=== PATIENT | male | born 1985 | race Two or more races ===

== ENCOUNTER 2021-04-20 01:30 | Emergency (ER) | payer MEDICAID ==
[~2021-04-20] VITALS: Ht 175.3 cm; Wt 200.0 kg
[2021-04-20] MEDS ORDERED: OLANZapine 5mg rapidly disint. tablet PO ONE (01:40)
[2021-04-20] MEDS ORDERED: PROP20TA6 PO (02:13)
[2021-04-20] MEDS ORDERED: HYDR-3686 PO (02:13)
[2021-04-20] MEDS ORDERED: RISP1TAB98 PO (02:13)
[2021-04-20] MEDS ORDERED: RISP2TAB85 PO (02:13)
[2021-04-20] MEDS ORDERED: VALP250C3 PO (02:13)
[2021-04-20] MEDS ORDERED: LEVO75TA PO (02:13)
[2021-04-20] MEDS ORDERED: QUET400T12 PO (02:13)
[2021-04-20] MEDS ORDERED: QUET400T PO (02:13)
[2021-04-20] MEDS ORDERED: risperiDONE 0.5mg tablet PO PRN (02:20)
[2021-04-20] MEDS ORDERED: risperiDONE 2mg tablet PO ONE (02:20)
--- NOTE | 2021-04-20 02:22 | NUR ---
Spoke with Doron at [facility], Pt.'s residential care facility, in [place], [place]. Doron is pt.'s caregiver and confirms pt. eloped from facility 3 days prior. Doron reports pt. has history schizophrenia and reported pt.'s medication list. [facility] contact # [phone] Pt.'s mother's # [phone] Addendum: 04/20/21 at 0227 by MAGDA Pt.'s mother's name is Hannah Beasley
--- NOTE | 2021-04-20 03:08 | NUR ---
pt room broke down , urine sample given , belongings docemneted by probation officer
--- NOTE | 2021-04-20 03:21 | NUR ---
med rec faxed to pharm
[2021-04-20 03:37] LABS: URINE AMPHETAMINE SCREEN POSITIVE (Neg); URINE BARBITUATE SCREEN NEGATIVE (Neg); URINE BENZODIAZEPINES SCREEN NEGATIVE (Neg); URINE CANNABINOID SCREEN POSITIVE (Neg); URINE COCAINE SCREEN NEGATIVE (Neg); URINE METHADONE SCREEN NEGATIVE (Neg); URINE OPIATE SCREEN NEGATIVE (Neg); URINE PHENCYCLIDINE SCREEN NEGATIVE (Neg)
--- NOTE | 2021-04-20 04:08 | NUR ---
PHARMACIST, CORRINE, REQUESTING CLARIFICATION ABOUT PTS HIGH SEROQUEL DOSE AND I CALL THE HOME AND CONFIRMED THAT HE DOES TAKE 800 AM AND 600 PM. ALSO CLARIFIED THE HYDROXAZINE FREQUENCY IS BID. ELI AT HIS CARE FACILITY REPORTS PT HAS NEVER TAKEN THIS PRN ON THEIR RECORDS BUT THAT PT DOES REGULARLY REQUEST RESPEREIDONE AND PAIN MANAGEMENT.
[2021-04-20] MEDS ORDERED: hydrOXYzine 25 MG tablet PO PRN (04:10)
[2021-04-20 05:35] LABS: BASOPHILS # (AUTO) 0.1 X10'3 (0-0.2); BASOPHILS % (AUTO) 1.5 % (0-1); EOSINOPHILS # (AUTO) 0.1 X10'3 (0-0.9); EOSINOPHILS % (AUTO) 2.1 % (0-6); HEMATOCRIT 42.7 % (42.0-52.0); HEMOGLOBIN 14.4 g/dl (14.0-17.9); LYMPHOCYTES % (AUTO) 29.6 % (21-51); MEAN CORPUSCULAR HEMOGLOBIN 29.5 PG (27.0-31.0); MEAN CORPUSCULAR HGB CONC 33.8 g/dL (33.0-36.5); MEAN CORPUSCULAR VOLUME 87.4 FL (78-98); MEAN PLATELET VOLUME 8.6 FL (7.4-10.4); MONOCYTES # (AUTO) 0.9 X10'3 (0-0.9); MONOCYTES % (AUTO) 13.8 % (2-12); NEUTROPHILS # (AUTO) 3.6 X10'3 (1.8-7.7); PLATELET COUNT 236 X10'3 (140-440); RED BLOOD COUNT 4.89 X10'6 (4.70-6.10); RED CELL DISTRIBUTION WIDTH 15.5 % (11.5-14.5); WHITE BLOOD COUNT 6.9 X10'3 (4.5-11.0)
[2021-04-20 05:43] LABS: ALANINE AMINOTRANSFERASE 85 U/L (12-78); ALBUMIN 3.9 G/DL (3.4-5.0); ALBUMIN/GLOBULIN RATIO 1.1 (1.1-1.5); ALKALINE PHOSPHATASE 83 IU/L (46-116); ANION GAP 11 (8-16); ASPARTATE AMINO TRANSFERASE 60 U/L (10-37); BILIRUBIN,TOTAL 0.6 MG/DL (0.1-1.0); BLOOD UREA NITROGEN 15 MG/DL (7-18); BUN/CREATININE RATIO 15.5 (5.4-32.0); CALCIUM 8.7 MG/DL (8.5-10.1); CHLORIDE 106 MMOL/L (99-107); CREATININE 0.97 MG/DL (0.60-1.10); GLUCOSE 103 MG/DL (70-104); SODIUM 143 MMOL/L (135-145); TOTAL PROTEIN 7.6 G/DL (6.4-8.2); eGFR 88 ML/MIN
[2021-04-20 05:51] LABS: ETHANOL < 0.010 GM/DL (0.0-0.010)
[2021-04-20 05:57] LABS: ACETAMINOPHEN < 2.0 UG/ML (10-30)
--- NOTE | 2021-04-20 07:21 | NUR ---
PACKET FAXED TO [facility]
[2021-04-20] MEDS: levoTHYROXINE 75mcg tablet PO SCH (07:53)
[2021-04-20] MEDS: quetiapine 100mg tablet PO SCH ×2 (07:54→21:25)
[2021-04-20] MEDS: propranolol 10mg tablet PO SCH ×2 (07:54→20:00)
--- NOTE | 2021-04-20 08:39 | NUR ---
PATIENT IS CALM AND COOPERATIVE. SITTING IN BED EATING BREAKFAST.
--- NOTE | 2021-04-20 08:50 | NUR ---
Patient standing up at bedside, states he feels like there is an earthquake. Patient assisted back to bed.
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
--- NOTE | 2021-04-20 11:51 | NUR ---
patient ambulated to bathroom. reports he had a bm.
--- NOTE | 2021-04-20 14:15 | NUR ---
Spoke with RN from [facility] and updated on pt status. Pt was placed on 5150 after evaluation from [facility] control chemist/CIERRA Sanchez.
--- NOTE | 2021-04-20 14:20 | NUR ---
Pt placed in bed 22, orientated to enrivonment and now sitting at bedside eating lunch tray.
--- NOTE | 2021-04-20 15:14 | NUR ---
Pt laying in bed singing out loud.
--- NOTE | 2021-04-20 20:17 | NUR ---
pt is pleasant but confused, pressured speech. Pt refused meds, giving nonsensical answers about it causing "poisoning." Pt is lying in bed, no distress noted.
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
[2021-04-20] MEDS: risperiDONE 2mg tablet PO SCH (21:25)
[2021-04-20] MEDS: valproic acid 250mg capsule PO SCH (21:25)
--- NOTE | 2021-04-20 21:30 | NUR ---
Pt accepted his hs meds
--- NOTE | 2021-04-20 22:46 | NUR ---
pt is sleeping now. pt awoke for a few mins and was worried he was "overdosing on the medications"
[2021-04-20] MEDS ORDERED: haloperidol lactate 5mg/ml inj IM ONE (23:30)
[2021-04-20] MEDS ORDERED: diphenhydrAMINE 50 mg/ml inj IM ONE (23:30)
[2021-04-20] MEDS ORDERED: LORazepam 2 mg/ml vial IM ONE (23:30)
[2021-04-20] MEDS ORDERED: haloperidol lactate 5mg/ml inj ONE (23:34)
[2021-04-20] MEDS ORDERED: LORazepam 2 mg/ml vial ONE (23:34)
[2021-04-20] MEDS ORDERED: diphenhydrAMINE 50 mg/ml inj ONE (23:35)
--- NOTE | 2021-04-21 00:13 | NUR ---
pt became agitated, believes we are trying to overdose him. Pt got out of bed and stated that he will "fuck someone up." Pt then said, "I'll kill someone." order from dr Mcmillan for ativan 2 mg, haldol 10 mg, benadryl 50 mg, all IM. pt reluctantly accepted meds and is now sleeping.
--- NOTE | 2021-04-21 01:03 | NUR ---
pt is now sleeping, snoring at times.
--- NOTE | 2021-04-21 03:17 | NUR ---
pt continues to sleep, no s/s of distress noted.
--- NOTE | 2021-04-21 06:57 | NUR ---
took report from kael weber. pt is lying in bed on back, appears asleep at this time. no s/s acute distres. respirations even and unlabored
[2021-04-21] MEDS: quetiapine 100mg tablet PO SCH ×3 (08:00→20:07)
[2021-04-21] MEDS: propranolol 10mg tablet PO SCH ×3 (08:00→20:07)
[2021-04-21] MEDS: levoTHYROXINE 75mcg tablet PO SCH (08:00)
--- NOTE | 2021-04-21 09:34 | NUR ---
PT HAS BEEN SLEEPING QUIETLY ALL MORNING. B52 WAS GIVEN LAST NIGHT AT 2343. INDERAL. SEROQUEL AND SYNTHROID NOT GIVEN. WILL GIVE WHEN PT WAKES UP.
--- NOTE | 2021-04-21 11:29 | NUR ---
LOLI FROM [facility] CALLED. REPORT GIVEN, ASKING FOR COVID SWAB. FAX: [phone], PHONE [phone]
--- NOTE | 2021-04-21 11:35 | NUR ---
DR. FRIEDMAN ORDERED RAPID COVID.
--- NOTE | 2021-04-21 12:13 | NUR ---
AMBULATED TO BR.
--- NOTE | 2021-04-21 12:28 | NUR ---
PT CALM AND COOPERATIVE, EATING HIS BREAKFAST.
--- NOTE | 2021-04-21 12:41 | NUR ---
DR. SOLIMAN PSYCHIATRIST FROM [facility] [place] CALLED, REPORT GIVEN.
--- NOTE | 2021-04-21 13:15 | NUR ---
PT SITTING UP EATING LUNCH WITH GOOD APPETITE. PLEASANT AND COOPERATIVE WITH CARE.
--- NOTE | 2021-04-21 14:25 | NUR ---
JC FAUSTIN- SISTER OF PT [phone]. JC SAID PT ESCAPED FROM FACILITY TO GET TO HIS MOM IN [place].
--- NOTE | 2021-04-21 19:00 | NUR ---
The patient currently is resting on his bed.
[2021-04-21] MEDS: valproic acid 250mg capsule PO SCH (20:07)
[2021-04-21] MEDS: risperiDONE 2mg tablet PO SCH (20:07)
--- NOTE | 2021-04-21 21:14 | NUR ---
The patient is pleasant and polite. He is waiting transfer. He was medication compliant. Negative covid results faxed to [facility] and Sandhya Olmedo.
--- NOTE | 2021-04-21 23:02 | NUR ---
The patient appears to be sleeping
--- NOTE | 2021-04-22 01:12 | NUR ---
The patient appears to be sleeping
--- NOTE | 2021-04-22 03:06 | NUR ---
The patient appears to be sleeping
--- NOTE | 2021-04-22 04:36 | NUR ---
The patient appears to be sleeping
--- NOTE | 2021-04-22 07:00 | NUR ---
Pt. asleep and lying in bed in supine position. Normal R&R of respirations observed.
--- NOTE | 2021-04-22 07:12 | NUR ---
RN spoke with [facility] office and informed that they are attempting to place pt. locally as they will not be transporting pt. back to [place].
[2021-04-22] MEDS: propranolol 10mg tablet PO SCH ×2 (08:33→20:00)
[2021-04-22] MEDS: levoTHYROXINE 75mcg tablet PO SCH (08:33)
[2021-04-22] MEDS: quetiapine 100mg tablet PO SCH ×2 (08:33→20:00)
--- NOTE | 2021-04-22 08:49 | NUR ---
breaking primary rn at this time ,pt up in bed eating his breakfast .
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
--- NOTE | 2021-04-22 11:00 | NUR ---
Pt. asleep in bed in supine position. Normal R&R of respiration noted. Pt. in no apparent distress.
--- NOTE | 2021-04-22 13:03 | NUR ---
Pt. awake at bedside and eating lunch.
--- NOTE | 2021-04-22 15:00 | NUR ---
Pt. asleep in bed in supine position. Normal R&R of respiration noted. Pt. in no apparent distress.
--- NOTE | 2021-04-22 17:02 | NUR ---
Pt. awake in bed, lying in supine position. Normal R&R of respirations observed. Pt. in no apparent distress.
[2021-04-22] MEDS ORDERED: lisinopril 10 MG tablet PO ONE (17:45)
--- NOTE | 2021-04-22 19:13 | NUR ---
One to one with the patient to assess for severity of psychotic symptoms, depressive symptoms and self harm risk. The patient was pleasant and cooperative with the evening assessment. His speech was fast and pressured and he had a flight of ideas. He stated that he felt sad because he is missing his family who he has not seen in a long time. He reports that he has constant AH and VH. He stated that he is seeing angels, demons, and devils. He stated that he was concerned that he is not getting any stool softener or fiber supplement because he has chronic constipation from his medications. Discussed patient's concern with Ermias PACHECO and orders received for colace and fiber supplement. The patient was assisted with making a phone call to his family. He was updated on the plan of care. He is aware that he is on a 5150 hold and that an inpatient psychiatric unit is being sought for him.
[2021-04-22] MEDS: calcium polycarbophil 625mg tablet PO SCH (19:59)
[2021-04-22] MEDS: valproic acid 250mg capsule PO SCH (20:00)
[2021-04-22] MEDS: docusate sod 100mg capsule PO SCH (20:00)
[2021-04-22] MEDS: risperiDONE 2mg tablet PO SCH (20:01)
--- NOTE | 2021-04-22 21:00 | NUR ---
The patient appears to be sleeping
--- NOTE | 2021-04-22 21:24 | NUR ---
The patient is reporting pain in the wisdom tooth on the lower right jaw. Ermias PACHECO made aware and orders received
[2021-04-22] MEDS ORDERED: ibuprofen 200mg tablet PO ONE (21:25)
--- NOTE | 2021-04-22 21:27 | NUR ---
HR 91 and BP 131/99
--- NOTE | 2021-04-22 22:43 | NUR ---
The patient appears to be sleeping
--- NOTE | 2021-04-23 00:26 | NUR ---
The patient appears to be sleeping
--- NOTE | 2021-04-23 02:03 | NUR ---
The patient appears to be sleeping
--- NOTE | 2021-04-23 03:45 | NUR ---
The patient appears to be sleeping
--- NOTE | 2021-04-23 07:00 | NUR ---
Pt. asleep in bed lying in supine position. Normal R&R of respirations observed.
[2021-04-23] MEDS ORDERED: lisinopril 10 MG tablet PO SCH (08:00)
[2021-04-23] MEDS: docusate sod 100mg capsule PO SCH (08:21)
[2021-04-23] MEDS: levoTHYROXINE 75mcg tablet PO SCH (08:21)
[2021-04-23] MEDS: quetiapine 100mg tablet PO SCH (08:21)
[2021-04-23] MEDS: propranolol 10mg tablet PO SCH (08:22)
[2021-04-23] MEDS: calcium polycarbophil 625mg tablet PO SCH (08:24)
--- NOTE | 2021-04-23 09:00 | NUR ---
Pt. awake a lying in bed in supine position. 1:1 done at bedside. Pt. denies SI/HI, A/V hallucinations. Pt. states, "I feel happy and depressed at the same time". Pt. is unsure why he is feeling depressed. Pt. states, "I just do".
--- NOTE | 2021-04-23 11:02 | NUR ---
Pt. asleep in supine position in bed. Normal R&R of respirations observed. Pt. in no apparent distress.
--- NOTE | 2021-04-23 13:00 | NUR ---
Pt. sitting at bedside eating lunch. No signs of distress noted.
[2021-04-23] MEDS ORDERED: DOCU-148 PO (13:58)
[2021-04-23] MEDS ORDERED: LISI10TA27 PO (13:58)
[2021-04-23] MEDS ORDERED: FIBER PO (13:58)
[2021-04-23 14:09] VITALS: BP 124/84
== END 2021-04-23 14:12 ==
LOC: ER 01:31
DX: F60.0 Paranoid personality disorder (principal); Z20.822 Contact with and (suspected) exposure to COVID-19; F22 Delusional disorders; I10 Essential (primary) hypertension; F20.9 Schizophrenia, unspecified; F31.9 Bipolar disorder, unspecified; G47.30 Sleep apnea, unspecified; F07.9 Unspecified personality and behavioral disorder due to known physiological condition; Z79.899 Other long term (current) drug therapy; Z63.9 Problem related to primary support group, unspecified
CPT/HCPCS: 36415; 80053; 80305; 80320; 80329; 84439; 84443; 85025; 87635; 96372; 99285; C9803; J1200; J1630; J2060; Q0177